=== PATIENT | male | born 1985 | race Caucasian/White ===

== ENCOUNTER → 2016-12-30 | Outpatient (CLI) | payer BC ==
--- NOTE | 2016-12-30 14:32 | DIAGNOSTIC IMAGING REPORT ---
LEFT KNEE 2 VIEWS CLINICAL HISTORY: Chronic left knee pain. FINDINGS: AP and lateral views of the left knee are obtained. No prior studies are available for comparison at the time of dictation. The skeletal structures are well mineralized. No fracture is seen. There is mild narrowing at the patellofemoral articulation. The medial and lateral joint spaces are preserved. Small patellar enthesophytes are identified. No joint effusion is seen. Mild prepatellar soft tissue swelling is identified. IMPRESSION: Mild prepatellar soft tissue swelling with no acute bony abnormality seen in the left knee. Electronically signed by: Lanre Nguyen M.D. 12/30/2016 2:31 PM Dictated Date/Time: 12/30/2016 2:30 PM
--- NOTE | 2016-12-30 14:36 | DIAGNOSTIC IMAGING REPORT ---
R KNEE 1 OR 2 VIEWS ROUTINE CLINICAL HISTORY: Right knee pain COMPARISON: None. DISCUSSION: No acute fractures are visualized. There are no erosive or destructive changes. There is equivocal early degenerative changes in the medial joint compartment. IMPRESSION: No evidence of fracture. No evidence of erosive disease. Electronically signed by: Humberto Bansal M.D. 12/30/2016 2:34 PM Dictated Date/Time: 12/30/2016 2:34 PM
== END | disposition home or self-care (01) ==
LOC: C.RAD1850 14:11
PROVIDERS: ATTEND Family Medicine
DX: L40.9 Psoriasis, unspecified (principal); M25.569 Pain in unspecified knee